=== PATIENT | male | born 1995 | race Caucasian/White ===

== ENCOUNTER 2019-10-10 15:52 | Emergency (ER) | payer OTHER ==
[2019-10-10 17:58] VITALS: TEMP 98.2
[2019-10-10 18:01] VITALS: BP 128/78; O2SAT 99
== END 2019-10-10 17:51 | disposition home or self-care (01) ==
LOC: ER 15:52
DX: F55.8 Abuse of other non-psychoactive substances (principal)
CPT/HCPCS: 36415; 70450; 80048; 80076; 80307; 80320; 80329; 81003; 85025; 85610; 85730; 93005; 96360; 99283; J7030

== ENCOUNTER 2020-02-16 22:51 | Emergency (ER) | payer OTHER ==
--- NOTE | 2020-02-17 00:14 | ER ---
Nurse's Notes [facility] Name: Deniz Awan Age: 24 yrs Sex: Male : 1995 Arrival Date: 02/16/2020 Time: 22:52 Bed 8 Private MD: Diagnosis: Laceration without foreign body of scalp;Contusion of unspecified part of head Presentation: 02/15 23:05 Chief complaint: Patient states: I was cleaning my cell. I stood up too fast and got jb4 dizzy, I hit my forehead on the bed railing and fell backwards. When I woke up I had a gash on the back of my head and was bleeding, I vomited once and Have been feeling very sleepy since, my head is throbbing and I am nauseas. 23:05 Care prior to arrival: None. Mechanism of Injury: Fall from standing position. Trauma jb4 event details: Injury occurred in the [facility]. 23:05 Acuity: JACQUES 3 jb4 23:05 Method Of Arrival: Law Enforcement: [place] [employer] [facility] jb4 23:05 Coronavirus screen: Client denies travel out of the [place] in the last 14 days. At this jb4 time, the client does not indicate any symptoms associated with coronavirus-19. Ebola Screen: No symptoms or risks identified at this time. Mechanism of Injury: The problem was [facility] at [facility] resulted from a fall, from a standing position. Initial Sepsis Screen: Does the patient meet any 2 criteria? No. Patient's initial sepsis screen is negative. Does the patient have a suspected source of infection? No. Patient's initial sepsis screen is negative. Risk Assessment: Do you want to hurt yourself or someone else? Patient reports no desire to harm self or others. 23:05 Onset of symptoms was February 16, 2020. jb4 Triage Assessment: 23:05 General: Appears in no apparent distress. comfortable, Behavior is calm, cooperative, jb4 appropriate for age. Pain: Complains of pain in headache Pain does not radiate. Pain currently is 7 out of 10 on a pain scale. Quality of pain is described as throbbing, Pain began 1 hour ago. EENT: No signs and/or symptoms were reported regarding the EENT system. Neuro: Level of Consciousness is awake, alert, obeys commands, Oriented to person, place, time, situation, Reports dizziness, headache. Cardiovascular: Patient's skin is warm and dry. Respiratory: Airway is patent Respiratory effort is even, unlabored, Respiratory pattern is regular, symmetrical. GI: Reports nausea. : No signs and/or symptoms were reported regarding the genitourinary system. Derm: Skin is pink, warm \T\ dry. Musculoskeletal: Circulation, motion, and sensation intact. Range of motion: intact in all extremities. Injury Description: Laceration sustained to inner aspect of right eyebrow and right side of the back of head. Trauma Activation: Alert Physician: ED Physician; Name: Rand; Notified At: 23:05; Arrived At: 23:05 Physician: General Surgeon; Name: ; Notified At: 23:05; Arrived At: Physician: Radiology; Name: Meg; Notified At: 23:05; Arrived At: 23:05 Physician: Respiratory; Name: ; Notified At: 23:05; Arrived At: Physician: Lab; Name: ; Notified At: 23:05; Arrived At: Historical: - Allergies: 23:05 No Known Allergies; jb4 - Home Meds: 23:05 None [Active]; jb4 - PMHx: 23:05 None; jb4 - PSHx: 23:05 None; jb4 - Immunization history:: Adult Immunizations up to date. - Immunization history: Last tetanus immunization: - up to date. - Social history:: Smoking status: Patient denies any tobacco usage or history of. Patient/guardian denies using alcohol, street drugs. Screenin:05 Abuse screen: Denies threats or abuse. Nutritional screening: No deficits noted. jb4 Tuberculosis screening: No symptoms or risk factors identified. Fall risk None identified. 23:05 Fall Risk None identified. jb4 Primary Survey: 23:05 NO uncontrolled hemorrhage observed. A: The patient is alert. Airway: patent, No jb4 supplemental oxygen in use on arrival. Oral cavity: clear, gag reflex present. Breathing/Chest: Respiratory pattern: regular, Respiratory effort: spontaneous, unlabored, Chest inspection: symmetrical rise and fall of the chest. Circulation: Skin color: pink, Skin temperature: warm, dry. Disability Alert. Exposure/Environment: All clothing and personal items were removed. Forensic evidence collection is not deemed to be indicated at this time. Items placed in patient belonging bag. 23:45 Reassessment Airway Airway Patent Oral cavity Clear +Gag reflex Breathing/Chest jb4 Respiratory pattern Regular Respiratory effort Spontaneous Unlabored Chest inspection Symmetrical Circulation Color [place] Temperature Warm Dry Disability Alert. Secondary Survey: 23:05 HEENT: Head Other Laceration to the right eye brow, and to the right of the scalp. Face jb4 No injury/deformity Eyes: No injury or deformity noted. Ears: clear Nose: clear Throat: is clear with gag reflex present. Gastrointestinal: No deficits noted. : No deficits noted. No signs and/or symptoms were reported regarding the genitourinary system. Musculoskeletal: No deficits noted. No signs and/or symptoms reported regarding the musculoskeletal system. Injury Description: Laceration sustained to inner aspect of right eyebrow and right side of the back of head. Assessment: 23:05 General: see triage note.. jb4 23:40 Reassessment: Patient appears in no apparent distress at this time. Patient and/or jb4 family updated on plan of care and expected duration. Pain level reassessed. Patient is alert, oriented x 3, equal unlabored respirations, skin warm/dry/pink. Provider at the bedside stapling laceration closed. 02/16 00:30 Reassessment: Patient appears in no apparent distress at this time. Patient and/or jb4 family updated on plan of care and expected duration. Pain level reassessed. Patient is alert, oriented x 3, equal unlabored respirations, skin warm/dry/pink. Pt and correctional officers verbalized understanding of d/c and follow up instructions. Denies questions or concerns. Pt ambulated out of ED with steady gait. Vital Signs: 02/15 23:05 BP 117 / 78; Pulse 52; Resp 16; Temp 97.6(O); Pulse Ox 100% on R/A; Weight 81.65 kg jb4 (R); Height 6 ft. 2 in. (187.96 cm) (R); Pain 7/10; 23:30 BP 108 / 74; Pulse 56; Resp 16; Pulse Ox 97% on R/A; jb4 02/16 00:30 BP 122 / 97; Pulse 65; Resp 16; Pulse Ox 100% on R/A; jb4 02/15 23:05 Body Mass Index 23.11 (81.65 kg, 187.96 cm) jb4 Kyrie Coma Score: 02/15 23:05 Eye Response: spontaneous(4). Verbal Response: oriented(5). Motor Response: obeys jb4 commands(6). Total: 15. 23:05 Eye Response: spontaneous(4). Verbal Response: oriented(5). Motor Response: obeys jb4 commands(6). Total: 15. 23:30 Eye Response: spontaneous(4). Verbal Response: oriented(5). Motor Response: obeys jb4 commands(6). Total: 15. 23:40 Eye Response: spontaneous(4). Verbal Response: oriented(5). Motor Response: obeys tw4 commands(6). Total: 15. 23:40 Eye Response: spontaneous(4). Verbal Response: oriented(5). Motor Response: obeys tw4 commands(6). Total: 15. 16 00:30 Eye Response: spontaneous(4). Verbal Response: oriented(5). Motor Response: obeys jb4 commands(6). Total: 15. Trauma Score (Adult): 02/15 23:05 Eye Response: spontaneous(1); Verbal Response: oriented(1); Motor Response: obeys jb4 commands(2); Systolic BP: > 89 mm Hg(4); Respiratory Rate: 10 to 29 per min(4); Kyrie Score: 15; Trauma Score: 12 23:30 Eye Response: spontaneous(1); Verbal Response: oriented(1); Motor Response: obeys jb4 commands(2); Systolic BP: > 89 mm Hg(4); Respiratory Rate: 10 to 29 per min(4); Kyrie Score: 15; Trauma Score: 12 08 00:30 Eye Response: spontaneous(1); Verbal Response: oriented(1); Motor Response: obeys jb4 commands(2); Systolic BP: > 89 mm Hg(4); Respiratory Rate: 10 to 29 per min(4); Kyrie Score: 15; Trauma Score: 12 ED Course: 02/15 22:52 Patient arrived in ED. cl3 22:56 Deniz Collado RN is Primary Nurse. jb4 23:02 Carlos Gordillo MD is Attending Physician. tw4 23:05 Patient has correct armband on for positive identification. Bed in low position. Call jb4 light in reach. Side rails up X 1. Patient maintains SpO2 saturation greater than 95% on room air. Pulse ox on. NIBP on. 23:05 Arm band placed on right wrist. jb4 23:05 Patient maintains SpO2 saturation greater than 95% on room air. Thermoregulation: warm jb4 blanket given to patient. 23:12 Triage completed. jb4 23:28 CT Head Brain wo Cont In Process Unspecified. EDMS 23:40 Assist provider with laceration repair on right side of the back of head that was 2.5 jb4 cm. or less using sharlene. Set up tray. Performed by Carlos Gordillo MD Patient tolerated well. 02/16 00:30 Patient did not have IV access during this emergency room visit. jb4 Administered Medications: 00:25 Drug: Tylenol 1000 mg Route: PO; jb4 00:30 Follow up: Response: Medication administered at discharge. jb4 00:25 Drug: Motrin 800 mg Route: PO; jb4 00:30 Follow up: Response: Medication administered at discharge. jb4 Outcome: 00:14 Discharge ordered by . tw4 00:30 Discharged to Law Enforcement jb4 00:30 Condition: stable 00:30 Discharge instructions given to patient, police, Instructed on discharge instructions, follow up and referral plans. medication usage, Demonstrated understanding of instructions, follow-up care, medications, Prescriptions given X 1. 00:32 Patient left the ED. jb4 Signatures: Dispatcher [employer] [facility] Deniz Collado, RN RN jb4 Carlos Gordillo MD MD tw4 Brenda Franco cl3
--- NOTE | 2020-02-17 00:14 | EDPHYS ---
Physician Documentation [facility] Name: Deniz Awan Age: 24 yrs Sex: Male : 1995 Arrival Date: 02/16/2020 Time: 22:52 Bed 8 Private MD: ED Physician Carlos Gordillo HPI: 02/15 23:40 This 24 yrs old Male presents to ER via Law Enforcement with complaints of tw4 Closed Head Injury-Adult. 23:40 The patient or guardian reports injury, pain. The complaints affect the right occipital tw4 area. Context of injury: The problem was sustained at home, resulted from a direct blow, a solid object, a fall. Onset: The symptoms/episode began/occurred today. Associated signs and symptoms: Loss of consciousness: This patient experience a loss of consciousness, Pertinent positives: loss of conciousness. Severity of symptoms: At their worst the symptoms were mild, in the emergency department the symptoms are unchanged. The patient has not experienced similar symptoms in the past. Historical: - Allergies: 23:05 No Known Allergies; jb4 - Home Meds: 23:05 None [Active]; jb4 - PMHx: 23:05 None; jb4 - PSHx: 23:05 None; jb4 - Immunization history:: Adult Immunizations up to date. - Immunization history: Last tetanus immunization: - up to date. - Social history:: Smoking status: Patient denies any tobacco usage or history of. Patient/guardian denies using alcohol, street drugs. ROS: 23:40 Constitutional: Negative for fever, chills, and weight loss, Eyes: Negative for injury, tw4 pain, redness, and discharge, Cardiovascular: Negative for chest pain, palpitations, and edema, Respiratory: Negative for shortness of breath, cough, wheezing, and pleuritic chest pain, Abdomen/GI: Negative for abdominal pain, nausea, vomiting, diarrhea, and constipation, Back: Negative for injury and pain, Skin: Negative for injury, rash, and discoloration, Neuro: Negative for headache, weakness, numbness, tingling, and seizure. Exam: 23:40 Constitutional: This is a well developed, well nourished patient who is awake, alert, tw4 and in no acute distress. 23:40 Cardiovascular: Regular rate and rhythm with a normal S1 and S2. No gallops, murmurs, or rubs. Normal PMI, no JVD. No pulse deficits. Respiratory: Lungs have equal breath sounds bilaterally, clear to auscultation and percussion. No rales, rhonchi or wheezes noted. No increased work of breathing, no retractions or nasal flaring. Abdomen/GI: Soft, non-tender, with normal bowel sounds. No distension or tympany. No guarding or rebound. No evidence of tenderness throughout. Back: No spinal tenderness. No costovertebral tenderness. Full range of motion. 23:40 Head/face: Noted is contusion, that is superficial, of the right occipital area, hematoma. 23:40 Head/face: Noted is abrasion(s), that are mild, of the nose. Vital Signs: 23:05 BP 117 / 78; Pulse 52; Resp 16; Temp 97.6(O); Pulse Ox 100% on R/A; Weight 81.65 kg jb4 (R); Height 6 ft. 2 in. (187.96 cm) (R); Pain 7/10; 23:30 BP 108 / 74; Pulse 56; Resp 16; Pulse Ox 97% on R/A; jb4 02/16 00:30 BP 122 / 97; Pulse 65; Resp 16; Pulse Ox 100% on R/A; jb4 02/15 23:05 Body Mass Index 23.11 (81.65 kg, 187.96 cm) jb4 [place] Coma Score: 02/15 23:05 Eye Response: spontaneous(4). Verbal Response: oriented(5). Motor Response: obeys jb4 commands(6). Total: 15. 23:05 Eye Response: spontaneous(4). Verbal Response: oriented(5). Motor Response: obeys jb4 commands(6). Total: 15. 23:30 Eye Response: spontaneous(4). Verbal Response: oriented(5). Motor Response: obeys jb4 commands(6). Total: 15. 23:40 Eye Response: spontaneous(4). Verbal Response: oriented(5). Motor Response: obeys tw4 commands(6). Total: 15. 23:40 Eye Response: spontaneous(4). Verbal Response: oriented(5). Motor Response: obeys tw4 commands(6). Total: 15. 08/16 00:30 Eye Response: spontaneous(4). Verbal Response: oriented(5). Motor Response: obeys jb4 commands(6). Total: 15. Trauma Score (Adult): 02/15 23:05 Eye Response: spontaneous(1); Verbal Response: oriented(1); Motor Response: obeys jb4 commands(2); Systolic BP: > 89 mm Hg(4); Respiratory Rate: 10 to 29 per min(4); Kyrie Score: 15; Trauma Score: 12 23:30 Eye Response: spontaneous(1); Verbal Response: oriented(1); Motor Response: obeys jb4 commands(2); Systolic BP: > 89 mm Hg(4); Respiratory Rate: 10 to 29 per min(4); Kyrie Score: 15; Trauma Score: 12 08 00:30 Eye Response: spontaneous(1); Verbal Response: oriented(1); Motor Response: obeys jb4 commands(2); Systolic BP: > 89 mm Hg(4); Respiratory Rate: 10 to 29 per min(4); Kyrie Score: 15; Trauma Score: 12 Laceration: 02/15 23:40 Wound Repair of 6.4cm ( 2.5in ) subcutaneous laceration to right side of the back of tw4 head. Linear shaped.. Distal neuro/vascular/tendon intact. Wound prep: Simple cleansing by me. Skin closed with 3 1-0 [place] using simple sutures and sterile technique. Patient tolerated well. MDM: 23:02 Patient medically screened. tw4 23:40 Differential diagnosis: Contusion of Hematoma on Laceration of. Data reviewed: vital tw4 signs, nurses notes, EMS record. Counseling: I had a detailed discussion with the patient and/or guardian regarding: the historical points, exam findings, and any diagnostic results supporting the discharge/admit diagnosis. 02/15 23:06 Order name: CT Head Brain wo Cont tw4 Administered Medications: 02/16 00:25 Drug: Tylenol 1000 mg Route: PO; 4 00:30 Follow up: Response: Medication administered at discharge. jb4 00:25 Drug: Motrin 800 mg Route: PO; jb4 00:30 Follow up: Response: Medication administered at discharge. jb4 Disposition: 02/17/20 00:14 Discharged to Home. Impression: Laceration without foreign body of scalp, Contusion of unspecified part of head. - Condition is Stable. - Discharge Instructions: Contusion, Head Injury, Adult, [id number]. - Prescriptions for Ibuprofen 800 mg Oral Tablet - take 1 tablet by ORAL route every 8 hours As needed take with food; 30 tablet. - Medication Reconciliation Form, Thank You Letter, Antibiotic Education, Prescription Opioid Use form. - Follow up: Private Physician; When: Upon discharge from the Emergency Department; Reason: Recheck today's complaints, Continuance of care, Re-evaluation by your physician. - Problem is new. - Symptoms have improved. Signatures: Dispatcher [employer] EDMS Deniz Collado RN RN jb4 Carlos Gordillo MD MD tw4 Corrections: (The following items were deleted from the chart) 00:32 00:14 02/17/2020 00:14 Discharged to Home. Impression: Laceration without foreign body jb4 of scalp; Contusion of unspecified part of head. Condition is Stable. Forms are Medication Reconciliation Form, Thank You Letter, Antibiotic Education, Prescription Opioid Use. Follow up: Private Physician; When: Upon discharge from the Emergency Department; Reason: Recheck today's complaints, Continuance of care, Re-evaluation by your physician. Problem is new. Symptoms have improved. tw4
[2020-02-17] MEDS ORDERED: ACETAMINOPHEN 500 MG TAB ONE (00:33)
[2020-02-17] MEDS ORDERED: IBUPROFEN 400 MG TAB ONE (00:33)
[2020-02-17 00:37] VITALS: TEMP 97.6
[2020-02-17 00:39] VITALS: BP 122/97; O2SAT 100
--- NOTE | 2020-02-18 11:52 | RAD REPORT ---
EXAM DESCRIPTION: CT - Head Brain Wo Cont - 02/17/2020 5:15 am CLINICAL HISTORY: Head injury COMPARISON: CT head 10/10/2019 TECHNIQUE: Head/brain axial images acquired without contrast. Coronal and sagittal reformats created . Exam performed according to departmental dose-optimization program which includes automated exposur e control, adjustment of mA and/or kV according to patient size, and/or use of iterative reconstructi on technique. FINDINGS: No midline shift, mass effect, intracranial hemorrhage, or hydrocephalus. Brain parenchyma unremarkable. Paranasal sinuses and mastoid air cells clear. No skull fracture or significant skull lesion. IMPRESSION: Unremarkable CT head without contrast. Electronically signed by: Victorino Talley MD 02/16/2020 11:43 PM CDT Due to temporary technical issues with the PACS/Fluency reporting system, reports are being signed by the in house radiologist without review as a courtesy to ensure prompt reporting. The interpreting r adiologist is fully responsible for the content of the report.
== END 2020-02-17 00:32 | disposition home or self-care (01) ==
LOC: ER 22:51
PROC: 0JQ00ZZ Repair Scalp Subcutaneous Tissue and Fascia, Open Approach (ICD-10-PCS; principal; 2020-02-17)
DX: S01.01XA Laceration without foreign body of scalp, initial encounter (principal); W22.03XA Walked into furniture, initial encounter; Y93.89 Activity, other specified; Y92.143 Cell of prison as the place of occurrence of the external cause
CPT/HCPCS: 70450; 99284; G0390